=== PATIENT | female | born 1950 | race Caucasian/White ===

== ENCOUNTER → 2019-03-20 | Outpatient (CLI) | payer MEDICARE ==
[2019-03-20 09:12] LABS: CHLORIDE,CL 103 mmol/L (98-107); SODIUM,NA 140 mmol/L (136-145)
== END ==
LOC: LL.CLIN 08:38 → LL.LAB 08:38
PROVIDERS: ATTEND Nurse Practitioner
DX: Z01.818 Encounter for other preprocedural examination (principal); I10 Essential (primary) hypertension; D64.9 Anemia, unspecified; R00.1 Bradycardia, unspecified
CPT/HCPCS: 36415; 80053; 85025; 90662; 99213; G0008

== ENCOUNTER 2021-07-27 12:40 | Emergency (ER) | payer MEDICARE, OTHER ==
[2021-07-27 14:06] LABS: ANION GAP 8.8 meq/L (7-15)
[2021-07-27] MEDS ORDERED: LORazepam 0.5 MG Tab PO ONE (14:14)
[2021-07-27] MEDS ORDERED: cloNIDine 0.1 MG Tab PO ONE (14:14)
[2021-07-27] MEDS ORDERED: Sodium Chloride 0.9% 10 ML Syringe FLUSH PRN (14:16)
[2021-07-27] MEDS ORDERED: LORazepam 2 MG/ML SDV IVPUSH ONE (14:17)
== END 2021-07-27 16:13 | disposition home or self-care (01) ==
LOC: LL.ED 12:40
DX: E03.9 Hypothyroidism, unspecified (principal); I10 Essential (primary) hypertension; E83.42 Hypomagnesemia; E11.9 Type 2 diabetes mellitus without complications; Z88.8 Allergy status to other drugs, medicaments and biological substances; Z88.2 Allergy status to sulfonamides; Z79.899 Other long term (current) drug therapy
CPT/HCPCS: 36415; 80053; 83735; 83880; 84443; 84484; 85025; 93005; 93010; 96365; 96375; 99283; 99284; A9270; J2060; J3475